=== PATIENT | male | born 1935 | race Caucasian/White ===

== ENCOUNTER 2018-01-25 10:34 | Emergency (ER) | payer MEDICARE ==
[2018-01-25] MEDS ORDERED: DEXAMETHASONE SOD PHOSPHATE 10MG/ML 1ML VIAL ONE (11:16)
== END 2018-01-25 11:53 | disposition home or self-care (01) ==
LOC: EDH 10:34
DX: M10.9 Gout, unspecified (principal); R22.41 Localized swelling, mass and lump, right lower limb; I25.10 Atherosclerotic heart disease of native coronary artery without angina pectoris; I10 Essential (primary) hypertension; J44.9 Chronic obstructive pulmonary disease, unspecified; Z87.891 Personal history of nicotine dependence
CPT/HCPCS: 96372; 99283; J1100